=== PATIENT | female | born 1990 | race African-American/Black ===

== ENCOUNTER 2025-02-07 17:35 | Emergency (ER) | payer OTHER ==
[~2025-02-07] VITALS: Ht 182.9 cm; Wt 115.9 kg
[2025-02-07] MEDS ORDERED: LEVO125 PO (17:48)
[2025-02-07] MEDS ORDERED: LOSA-382 PO (17:48)
[2025-02-07 18:10] VITALS: TEMP 98.2
[2025-02-07 18:44] LABS: CALCIUM, TOTAL 8.9 mg/dL (8.8-10.5); CREATININE 1.00 mg/dL (0.60-1.30); GLOMERULAR FILTR. RATE CALC > 60 mL/min (>60); GLUCOSE,RANDOM 85 mg/dL (70-110); SODIUM SERUM 137 mmol/L (136-145); TROPONIN I-HIGH SENSITIVITY 9 ng/L (<51); UREA NITROGEN, BLOOD 6 mg/dL (7-18)
[2025-02-07 18:55] LABS: PLATELET COUNT (AUTO) 293 K/uL (150-450); RED BLOOD CELL COUNT(AUTO) 4.13 MIL/uL (4.00-5.20); RED CELL DISTRIBUTION WIDTH 17.0 % (11.5-14.5); WHITE BLOOD COUNT (AUTO) 7.2 K/uL (4.5-11.0)
[2025-02-07 19:00] VITALS: BP 124/79; PULSE 54; RESP 15; O2SAT 100
== END 2025-02-07 20:19 | disposition home or self-care (01) ==
LOC: EMS 17:35
DX: R00.2 Palpitations (principal); R42 Dizziness and giddiness; R53.1 Weakness; E89.0 Postprocedural hypothyroidism; F84.0 Autistic disorder; I10 Essential (primary) hypertension; Z88.1 Allergy status to other antibiotic agents; Z90.89 Acquired absence of other organs; Z79.899 Other long term (current) drug therapy
CPT/HCPCS: 71045; 80048; 84439; 84443; 84484; 85025; 93005; 99285; 36415-L1; 36415-TC